=== PATIENT | female | born 1975 | race Caucasian/White ===

== ENCOUNTER → 2020-06-23 10:32 | Outpatient (BNVA) | payer MEDICAID, SELFPAY | PROVIDERS: PCP Student in an Organized Health Care Education/Training Program; Referring Provider Student in an Organized Health Care Education/Training Program; Visit Provider Student in an Organized Health Care Education/Training Program | DX: M25.50 Pain in unspecified joint (principal); D59.10 Autoimmune hemolytic anemia, unspecified; Z79.899 Other long term (current) drug therapy | CPT/HCPCS: 99212 ==

== ENCOUNTER → 2020-07-06 16:15 | Outpatient (BNVA) | payer MEDICAID, SELFPAY | PROVIDERS: PCP Student in an Organized Health Care Education/Training Program; Visit Provider Anesthesiology | DX: Z76.89 Persons encountering health services in other specified circumstances (principal) ==

== ENCOUNTER 2020-07-15 13:43 | Day surgery (SDC) | payer MEDICAID, SELFPAY ==
--- NOTE | 2020-07-14 09:12 | HO.ANESPROP2 ---
Documented by User: Dior Sánchez 07/14/20 09:18 HPI - Anesthesia Eval Consult details Narrative: 44yo F for Genicular Nerve Block Cooled (RFA) right PMFSH Past Medical History Medical History Autoimmune hemolytic anemia History of asthma History of back pain History of fibromyalgia History of lupus History of stress incontinence Hx of chronic arthritis Hx of human immunodeficiency virus infection Hx of migraines Family History Family History Maternal Aunt Diabetes Mother Diabetes Maternal Grandmother HTN (hypertension) Diabetes Surgical History Surgical History Hx of abdominoplasty Hx of tubal ligation Social History Social History Alcohol intake: current Smoking Status: Never smoker Use of substances other than those prescribed or required for medical reasons: No Advance Directives: No Advance Directives Information Provided: Yes Meds Allergies Allergy/AdvReac Type Severity Reaction Status Date / Time Latex, Natural Rubber Allergy Intermediate HIVES,RASH, Verified 07/15/20 14:22 [LATEX, NATURAL RUBBER] SHORTNESS BREATH Home Medications Medication Instructions Recorded Confirmed Type albuterol sulfate 2.5 mg INHALATION Q4-6H PRN 06/23/20 History albuterol sulfate 90 mcg/actuation 2 puff INHALATION Q6H PRN 06/23/20 History aerosol inhaler amitriptyline 10 mg tablet 10 mg PO BEDTIME 06/23/20 History azathioprine 50 mg tablet 50 mg PO BID tab 06/23/20 History gklsdfmvwa-geyxjpojsldmc-xzedkjrm 1 cap PO Q4-6H PRN 06/23/20 History 50 mg-300 mg-40 mg capsule clonidine HCl 0.1 mg tablet 0.1 mg PO BEDTIME 06/23/20 History cyclobenzaprine 10 mg tablet 10 mg PO BEDTIME 06/23/20 History emtricitabine 200 mg-rilpivirine 1 tab PO DAILY 06/23/20 History 25 mg-tenofovir disprox 300 mg tablet escitalopram oxalate 10 mg tablet 10 mg PO DAILY 06/23/20 History fluticasone 250 mcg-salmeterol 50 1 inh INHALATION BID 06/23/20 History mcg/dose blistr powdr for inhalation fluticasone propionate 50 1 spray INTRANASAL BID 06/23/20 History mcg/actuation nasal spray,suspension imipramine HCl 25 mg tablet 50 mg PO BID 06/23/20 History lorazepam 0.5 mg tablet 0.5 mg PO BEDTIME PRN 06/23/20 History meloxicam 15 mg tablet 15 mg PO DAILY 06/23/20 History methylphenidate HCl 54 mg 54 mg PO DAILY 06/23/20 History tablet,extended release 24 hr pregabalin 100 mg capsule 100 mg PO BID 06/23/20 History Exam Exam Date and Time: July 14, 2020911 Assessment and Plan Assessment Anesthesia Assessment: Chart Reviewed Documented by User: Reilly Chi MD 07/15/20 14:50 PMFSH Past Medical History Medical History Autoimmune hemolytic anemia History of asthma History of back pain History of fibromyalgia History of lupus History of stress incontinence Hx of chronic arthritis Hx of human immunodeficiency virus infection Hx of migraines Family History Family History Maternal Aunt Diabetes Mother Diabetes Maternal Grandmother HTN (hypertension) Diabetes Surgical History Surgical History Hx of abdominoplasty Hx of tubal ligation Social History Social History Alcohol intake: current Smoking Status: Never smoker Use of substances other than those prescribed or required for medical reasons: No Advance Directives: No Advance Directives Information Provided: Yes Meds Allergies Allergy/AdvReac Type Severity Reaction Status Date / Time Latex, Natural Rubber Allergy Intermediate HIVES,RASH, Verified 07/15/20 14:22 [LATEX, NATURAL RUBBER] SHORTNESS BREATH Home Medications Medication Instructions Recorded Confirmed Type albuterol sulfate 2.5 mg INHALATION Q4-6H PRN 06/23/20 History albuterol sulfate 90 mcg/actuation 2 puff INHALATION Q6H PRN 06/23/20 History aerosol inhaler amitriptyline 10 mg tablet 10 mg PO BEDTIME 06/23/20 History azathioprine 50 mg tablet 50 mg PO BID tab 06/23/20 History [id number]-grtmoehiwdvhl-rkpyvnzy 1 cap PO Q4-6H PRN 06/23/20 History 50 mg-300 mg-40 mg capsule clonidine HCl 0.1 mg tablet 0.1 mg PO BEDTIME 06/23/20 History cyclobenzaprine 10 mg tablet 10 mg PO BEDTIME 06/23/20 History emtricitabine 200 mg-rilpivirine 1 tab PO DAILY 06/23/20 History 25 mg-tenofovir disprox 300 mg tablet escitalopram oxalate 10 mg tablet 10 mg PO DAILY 06/23/20 History fluticasone 250 mcg-salmeterol 50 1 inh INHALATION BID 06/23/20 History mcg/dose blistr powdr for inhalation fluticasone propionate 50 1 spray INTRANASAL BID 06/23/20 History mcg/actuation nasal spray,suspension imipramine HCl 25 mg tablet 50 mg PO BID 06/23/20 History lorazepam 0.5 mg tablet 0.5 mg PO BEDTIME PRN 06/23/20 History meloxicam 15 mg tablet 15 mg PO DAILY 06/23/20 History methylphenidate HCl 54 mg 54 mg PO DAILY 06/23/20 History tablet,extended release 24 hr pregabalin 100 mg capsule 100 mg PO BID 06/23/20 History Exam Airway Mallampati Class: III TM Dist: >3cm Neck ROM: Full Loose/Missing/Broken Teeth: No Heart: rrr Lungs: nl Other: ao Assessment and Plan Assessment Anesthesia Assessment: Anesthesia Plan Discussed and Chart Reviewed Final Anesthetic Review NPO: Yes ASA Class: III Final Preanesthetic Review: No Changes in Pt Med Stat, Meds/Allgs Chart Reviewed, Consent Obtained/Reviewed and Anes Risks/Benef Reviewed Patient Risk: Intermediate Procedure Risk: Low Anesthetic Plan Anesthetic Plan: MAC: Disposition: Standard PACU
[2020-07-15 13:54] VITALS: BP 139/58; PULSE 82; RESP 16; TEMP 36.4; O2SAT 97; BMI 34.2
[2020-07-15 14:05] LABS: Glucose, Whole Blood 104 mg/dL (60-115)
[2020-07-15] MEDS: Lactated Ringers 1,000 ML 100 ML IVCONT (14:23)
--- NOTE | 2020-07-15 14:49 | FL_ITS ---
EXAMINATION: XR FLUOROSCOPY WITH IMAGES CLINICAL INFORMATION: Right geniculate nerve block COMPARISON: Fluoroscopic spot views right knee 04/10/2019 TECHNIQUE: Fluoroscopy performed by Dr. Dio Borja. Fluoroscopy time: 0.3 minutes DAP: 2.61 Gycm2 Images: 2 FINDINGS: There are needles adjacent to the mid aspect distal right femoral shaft on both the medial and lateral sides. There is also a needle directed adjacent to the midshaft proximal right tibia on medial side. There is narrowing medial knee joint compartment and marginal osteophytes femoral condyles and medial tibial plateau. FL/FL guidance in OR IMPRESSION: Fluoroscopy for pain management procedure.
--- NOTE | 2020-07-15 14:52 | MHC.SHP ---
Pre-Procedural Eval Section A The patient is an INPATIENT: No The History & Physical has been completed within 30 days and I have reviewed it.: No Section B Chief Complaint: osteoarthritis right knee Details of Present Illness: as above Relevant Family History (Specify if Yes): No Relevant Social History: None Present Medications: see Short Stay Collaborative assessment Medical History: No relevant PMH History of Previous Operations: No relevant previous surgery Allergies: Allergies Allergy/AdvReac Type Severity Reaction Status Date / Time Latex, Natural Rubber Allergy Intermediate HIVES,RASH, Verified 07/15/20 14:22 [LATEX, NATURAL RUBBER] SHORTNESS BREATH Review of Systems Sugical H&P ROS: Negative: Constitution, Cardiovascular, Respiratory, Neurological, Psychiatric, Hem-Onc, Allergic/Immunologic, Gastrointestinal, Genitourinary, Musculoskeletal, Integumentary, Endocrine and Eyes/Ears/Nose/Throat Exam Surgical H&P Exam: Normal: HEENT, Normal: Heart, Normal: Lungs, Normal: Extremities, Normal: Abdomen, Normal: Skin and Normal: Neurological Plan Diagnosis/Plan: Unchanged Patient has been examined and remains a candidate for the planned procedure
[2020-07-15 15:34] VITALS: BP 110/69; PULSE 79; RESP 13; TEMP 36.6; O2SAT 98
[2020-07-15 15:48] VITALS: BP 126/76; PULSE 78; RESP 18; O2SAT 96
--- NOTE | 2020-07-15 16:21 | PM.OP ---
Brief Operative Note Date of Service: 07/15/20 Pre-op diagnosis: Right knee osteoarthritis, Complex regional pain syndrome of right lower extremity. Post-op diagnosis: same Procedure: Radiofrequency ablation of genicular nerves. Implants: none Surgeon: Dio Borja MD Anesthesia: MAC Estimated blood loss (mL): 0 Pathology: none sent Condition: stable Disposition: PACU
--- NOTE | 2020-07-15 16:22 | W.PM.OPN ---
Operative Note Operative Note Date of Service: 07/15/20 Narrative: Patient came to the operating room after informed consent was obtained. she was positioned supine on the operating table [employer] monitors were applied , patient was sedated. Time-out procedure was performed delineating correct site and side of the injections, patient's name and date of , allergies, need for antibiotics, risk of fire. Patient's right knee as well as anterior surface of lower thigh as well as anterior surface of upper shins were prepped with ChloraPrep and draped with sterile towels. Sterilely draped C-arm was brought over the operating field and sq picture of the patient's right knee was obtained on the screen. The point of interest were delineated as connection of Lateral metaphysis and diaphysis of the femoral bone for lateral superior genicular nerve, as well as connection of medial metaphysis and diaphysis of the femoral bone for suprapatellar saphenous nerve, as well as connection of the medial metaphysis and diaphysis of the tibia for infrapatellar saphenous nerve. The projection of the points of interest to the skin was injected with lidocaine 2%. After that radiofrequency cannulas 50 mm long were inserted through the skin wheals and advanced to were the point of interest. When the cannulas contacted the bone the location of the tips of the cannulas was verified on lateral views. The adjustments were made to make sure that the tip of the cannulas is position in the projection of mid shaft of the bone in both femoral needle insertion and tibial medial insertion. After that injection of the small amount of mixture of lidocaine 2% and bupivacaine 0.5% 1-1 with addition of trace amount of Kenalog was injected in the amount of 1/2 to 2 cc into each cannula. After that energy application at 65 degree centigrade was performed for 2 minutes 45 seconds 1st and after that for another 2 minutes. The patient tolerated procedure well. Upon completion of the application of the energy the cannulas were removed and sterile Band-Aids were applied. The patient was taking outside of the operating room to recovery room where she recovered uneventfully. She went home without immediate complications.
== END 2020-07-15 16:20 | disposition home or self-care (01) ==
PROVIDERS: PCP Student in an Organized Health Care Education/Training Program; Visit Provider Anesthesiology
PROC: 3E0T3BZ Introduction of Anesthetic Agent into Peripheral Nerves and Plexi, Percutaneous Approach (ICD-10-PCS; CPT 64454; principal; 2020-07-15 14:30)
DX: M17.11 Unilateral primary osteoarthritis, right knee (principal); D59.10 Autoimmune hemolytic anemia, unspecified; Z21 Asymptomatic human immunodeficiency virus [HIV] infection status; Z98.51 Tubal ligation status; Z91.040 Latex allergy status
CPT/HCPCS: 64624; 82947; J2250; J3010; J3300

== ENCOUNTER → 2020-08-23 13:47 | Outpatient (BNVA) | payer MEDICAID, SELFPAY | PROVIDERS: PCP Student in an Organized Health Care Education/Training Program; Visit Provider Anesthesiology | DX: M17.11 Unilateral primary osteoarthritis, right knee (principal); M47.812 Spondylosis without myelopathy or radiculopathy, cervical region; M47.816 Spondylosis without myelopathy or radiculopathy, lumbar region | CPT/HCPCS: 99212 ==

== ENCOUNTER → 2020-09-23 13:48 | Outpatient (BNVA) | payer MEDICAID, SELFPAY | PROVIDERS: PCP Student in an Organized Health Care Education/Training Program; Referring Provider Student in an Organized Health Care Education/Training Program; Visit Provider Urology | DX: N39.3 Stress incontinence (female) (male) (principal) | CPT/HCPCS: 81002; 99212 ==

== ENCOUNTER → 2021-02-09 13:50 | Outpatient (BNVA) | payer MEDICAID, SELFPAY | PROVIDERS: PCP Student in an Organized Health Care Education/Training Program; Visit Provider Anesthesiology | DX: M17.11 Unilateral primary osteoarthritis, right knee (principal); M47.812 Spondylosis without myelopathy or radiculopathy, cervical region; M47.816 Spondylosis without myelopathy or radiculopathy, lumbar region | CPT/HCPCS: 99212 ==